=== PATIENT | female | born 1975 | race Caucasian/White ===

== ENCOUNTER 2018-04-28 10:19 | Emergency (ER) | payer MEDICAID, SELFPAY ==
[2018-04-28 10:20] VITALS: BP 152/80; PULSE 84; RESP 18; TEMP 36.6; O2SAT 98; BMI 31.4
--- NOTE | 2018-04-28 12:34 | RAD_ITS ---
STUDY: X-RAY CHEST REASON FOR EXAM: Female, 42 years old. Cough. Bright red blood in the sputum. TECHNIQUE: PA and lateral views of the chest. COMPARISON: None. FINDINGS: The lungs are clear and expanded. Scattered calcified granulomas. There is no demonstrated pleural abnormality. Normal size heart. Normal mediastinum and nilesh. Normal visualized pulmonary arteries. Normal visualized aortic arch and descending thoracic aorta. There are mild degenerative changes of the visualized thoracic spine. Normal visualized ribs, clavicles, and shoulders. There is no demonstrated abnormality of the visualized soft tissue structures of the upper abdomen. RAD/Chest PA and Lateral IMPRESSION: No acute abnormality is seen. Electronically Signed: Clement Patton MD at 13:17 EST , Service support ,
[2018-04-28 13:08] VITALS: RESP 18
--- NOTE | 2018-04-28 13:36 | ED.DCSUM_ITS ---
- ER Visit Summary Date of Service: 04/28/18 Chief Complaint: Left ear pain and cough History of Present Illness: The patient is a 42 F with congestion and left ear pain for the last week and a half. She was seen in urgent care. She was given Flonase, prednisone, Tessalon Perles, and an inhaler. Patient states she does not feel improved with this and now has right sided chest pain when she coughs. She has yellow sputum with her cough and occasional blood streaks. She has had chills but no fever. Physical Examination: Vital signs significant only for blood pressure 152/80, otherwise unremarkable. Patient sitting upright in bed no acute distress. She is nontoxic appearing. Head and neck examination was TMs to be clear bilaterally. She has mild posterior pharyngeal drainage. Heart is regular rate and rhythm. Lungs sounds are clear. Abdomen is soft nontender. Test Results: Chest x-ray shows no acute abnormality. Emergency Department Course and Treatment: Patient be treated with a course of Augmentin to cover for URI symptoms along with her bronchitis. She is also written for Mucinex at home. Treatment Plan: [] Disposition: Discharge Impression: Bronchitis This note was generated with [employer] dictation software. It may contain incorrect words, spelling, and punctuation that were not noted in review of the chart prior to signing ED Disposition - Plan for ED Patient: Disposition: Home or Assisted Living Instructions: ED Upper Resp Infec Abx Tx Prescriptions: Amox/Clavulanate Tablet [Augmentin Tablet] 875 mg PO Q12H #20 tablet Guaifenesin [Mucinex] 1,200 mg PO BID PRN #14 tbmp.12hr PRN Reason: Congestion Referrals: Javier Curtis MD [Primary Care Provider] - 1-2 Weeks
--- NOTE | 2018-04-28 13:39 | DCINST.ED_ITS ---
ED Disposition - Plan for ED Patient: Disposition: Home or Assisted Living Instructions: ED Upper Resp Infec Abx Tx Prescriptions: Amox/Clavulanate Tablet [Augmentin Tablet] 875 mg PO Q12H #20 tablet Guaifenesin [Mucinex] 1,200 mg PO BID PRN #14 tbmp.12hr PRN Reason: Congestion Referrals: Javier Curtis MD [Primary Care Provider] - 1-2 Weeks
[2018-04-28] MEDS: Amox/Clavulanate 875 MG Tablet PO (13:45)
[2018-04-28 13:46] VITALS: PULSE 93; RESP 22; O2SAT 98
--- NOTE | 2018-04-28 13:46 | ED.RN ---
THIS NURSE REVIEWED D/C INSTRUCTIONS WITH PT. PT VERBALIZED UNDERSTANDING OF INSTRUCTIONS. PT DENIES FURTHER NEEDS OR QUESTIONS AT THIS TIME.
== END 2018-04-28 13:46 | disposition home or self-care (01) ==
PROVIDERS: Emergency Provider Emergency Medicine; Family Provider Family Medicine; PCP Family Medicine
DX: J40 Bronchitis, not specified as acute or chronic (principal); K21.9 Gastro-esophageal reflux disease without esophagitis; E11.9 Type 2 diabetes mellitus without complications; Z79.84 Long term (current) use of oral hypoglycemic drugs; Z79.899 Other long term (current) drug therapy; Z72.0 Tobacco use
CPT/HCPCS: 71046; 99283

== ENCOUNTER 2019-06-28 16:51 | Emergency (ER) | payer SELFPAY ==
[2019-06-28 16:52] VITALS: BP 136/76; PULSE 75; RESP 15; TEMP 36.8; O2SAT 98; BMI 30.8
--- NOTE | 2019-06-28 17:17 | ED.DCSUM_ITS ---
- ER Visit Summary Date of Service: 06/28/19 Chief Complaint: Dental pain History of Present Illness: The patient is a 43 F who presents with dental pain and facial swelling that has been getting worse over the past 4 days. Patient describes the pain as throbbing and aching. Patient states the pain is over the left lower molars. Patient states her pain is worse when she opens her jaw. Patient also admits to hot and cold sensitivity. Patient denies any fevers or chills. Patient does admit to a sore throat. Patient denies any cough. Physical Examination: Vital signs are stable. Patient is afebrile. Patient is in no acute distress. Oral mucosa is pink and moist. Oropharynx is clear. Airway is patent. There is a large dental carry noted over the left lower second molar. There is some gingival edema. There is no fluctuance discharge or drainage. There is tenderness to percussion over this tooth. Neck is supple. Trachea is midline. There is no lymphadenopathy. There is no sublingual edema or evidence of Lazaro angina. Cranial nerves II through XII are intact. There are no focal motor or sensory deficits. Emergency Department Course and Treatment: Patient was given her first dose of amoxicillin here. Patient was given a prescription for amoxicillin. Patient was instructed to follow-up with a dentist in 5 to 7 days. Patient was instructed to continue Tylenol and ibuprofen as needed for pain. Patient un derstood and was agreeable with the plan. All questions were answered. Disposition: Discharge home Impression: Infected dental caries This note was generated with [employer] dictation software. It may contain incorrect words, spelling, and punctuation that were not noted in review of the chart prior to signing ED Disposition - Plan for ED Patient: Disposition: Home or Assisted Living Diagnosis: Infected dental caries Instructions: ED Abscess Tooth Prescriptions: Amoxicillin 500 mg PO TID #30 tab Prescription Printed Referrals: Javier Curtis MD [Primary Care Provider] -
[2019-06-28] MEDS: AMOXICILLIN 500 MG CAPSULE PO (17:37)
[2019-06-28 17:38] VITALS: RESP 16
== END 2019-06-28 17:38 | disposition home or self-care (01) ==
LOC: ED 17:22
PROVIDERS: Emergency Provider Emergency Medicine; PCP Family Medicine
DX: K02.9 Dental caries, unspecified (principal); F17.200 Nicotine dependence, unspecified, uncomplicated; E11.9 Type 2 diabetes mellitus without complications
CPT/HCPCS: 99283

== ENCOUNTER 2019-09-28 12:20 | Emergency (ER) | payer SELFPAY ==
[2019-09-28 12:22] VITALS: BP 159/87; PULSE 87; RESP 16; TEMP 36.6; O2SAT 98; BMI 25.0
--- NOTE | 2019-09-28 12:57 | RAD_ITS ---
STUDY: X-RAY - RIGHT HAND REASON FOR EXAM: Female, 43 years old. Pt. injured 2nd and 4th fingers, got them would up in the dog leash and then the dog pulled the leash tight TECHNIQUE: 3 view(s) of the hand. COMPARISON: None. FINDINGS: Normal radiocarpal articulation. Normal distal radioulnar joint. Normal visualized carpal bones. Normal carpal articulations Normal carpometacarpal articulation of the thumb. Normal second through fifth carpometacarpal joints. Normal metacarpi. Normal metacarpophalangeal joint of the thumb. Normal interphalangeal joint of the thumb. Normal proximal and distal phalanges of the thumb. Normal metacarpophalangeal joints of the second through fifth fingers. Normal proximal and distal interphalangeal joints of the second through fifth fingers. Nondisplaced oblique fracture through the midportion of the middle phalanx of the fourth digit. Soft tissue swelling. RAD/Hand Min 3 Views IMPRESSION: Nondisplaced oblique fracture through the midportion of the middle phalanx of fourth digit. Soft tissue swelling Electronically Signed: Clement Patton, at 13:16 EDT , Service support ,
--- NOTE | 2019-09-28 13:16 | ED.VISSUMM ---
- ER Visit Summary Date of Service: 09/28/19 Chief Complaint: Right fourth finger pain. History of Present Illness: The patient is a [address] nicole. She is right-hand dominant. She reports that yesterday her dog went to run away and she grabbed his leash and twisted her right fourth finger. She reports that she has a throbbing pain is 10 of 10 with movement 6 out of 10 at rest and after ibuprofen. Denies any paresthesias distally. She denies any other injuries. Physical Examination: Vitals: Stable. Afebrile. General: Well-nourished and well-developed. Head: Normocephalic atraumatic. Neck: Supple, no lymphadenopathy. No JVD. Nontender. Cardiovascular: Regular rate and rhythm. No murmurs. Respiratory: No respiratory distress. Clear to auscultation bilaterally. Abdominal: Soft, nontender, nondistended, normal bowel sounds. No guarding, rebound, or peritoneal signs. Back: Nontender. Extremities: Moderate soft tissue swelling and contusion over her right fourth finger. This is worse over the middle phalanx. She is neuro vas intact distal to this. Skin: Normal color, no rash. Neurologic: Alert and oriented ?3. Cranial nerves II through XII are intact. Normal strength and sensation. Psych: Normal affect. Test Results: Clinical Impression(s) from Imaging Studies Hand X-Ray 09/28/19 12:57 IMPRESSION: Nondisplaced oblique fracture through the midportion of the middle phalanx of fourth digit. Soft tissue swelling Electronically Signed: Clement Patton, at 13:16 EDT , Service support , Emergency Department Course and Treatment: Patient refused pain medications. She was placed in aluminum foam splint. Treatment Plan: Patient will be discharged instructions follow-up Dr. Steele in 1 week for another exam. Return to the emergency department for any worsening symptoms. Disposition: To home in improved and stable condition. Impression: 1. Right fourth finger middle phalanx fracture. This note was generated with [employer] software. It may contain incorrect words, spelling, and punctuation that were not noted in review of the chart prior to signing ED Disposition - Plan for ED Patient: Disposition: Home or Assisted Living Instructions: ED FINGER FRACTURE Closed Referrals: Radha Steele DO [STAFF PHYSICIAN] - 1 Week
[2019-09-28 13:47] VITALS: BP 142/74; PULSE 60; RESP 18; O2SAT 98
== END 2019-09-28 13:53 | disposition home or self-care (01) ==
LOC: ED 13:34
PROVIDERS: Emergency Provider Emergency Medicine; PCP Family Medicine
DX: S62.624A Displaced fracture of middle phalanx of right ring finger, initial encounter for closed fracture (principal); F17.200 Nicotine dependence, unspecified, uncomplicated; X58.XXXA Exposure to other specified factors, initial encounter
CPT/HCPCS: 73130; 99283

== ENCOUNTER 2020-08-06 17:45 | Emergency (ER) | payer MEDICAID, SELFPAY ==
[2020-08-06 17:46] VITALS: BP 142/72; PULSE 85; RESP 17; TEMP 36.1; O2SAT 97; BMI 31.4
[2020-08-06 19:14] VITALS: RESP 16
--- NOTE | 2020-08-06 19:42 | ED.VIS.BACK ---
HPI History of Present Illness Chief Complaint: Back Informant: patient Onset/Context/Timing Onset: Weeks (2 weeks) Context: Gradual Onset Timing: Continuous Quality: Sharp and Burning Location: Buttock and Right Leg Current Severity: Moderate Maximum Severity: Moderate Worsened by: improves with Movement Associated Symptoms Associated Symptoms: Radiation to Right Leg Narrative Narrative: Patient presents with low back pain. She reports pain to the right low back extending down her leg. She describes a burning sensation. She states her calf feels tight as if she has a charley horse. Symptoms been ongoing for the past 2 weeks. There is no fall or injury at the onset of symptoms. She has had sciatica as well as sacroiliitis. Patient reports that she is a diabetic but does not check her blood sugars as she lost her insurance. [facility] Medical History Diabetes GERD (gastroesophageal reflux disease) Hammer toes, bilateral Sciatic nerve pain Home Medications lisinopril 5 mg PO DAILY 07/25/13 [History Last Taken Unknown] Cetirizine Hcl [Zyrtec] 10 mg PO DAILY 02/03/16 [History Last Taken Unknown] atorvastatin 40 mg PO QHS 02/03/16 [History Last Taken Unknown] esomeprazole magnesium [Nexium] 20 mg PO DAILY 02/03/16 [History Last Taken Unknown] metformin 500 mg PO BID 02/03/16 [History Last Taken Unknown] amoxicillin 500 mg PO TID #30 tab 06/28/19 [Rx Last Taken Unknown] cyclobenzaprine 10 mg PO BID PRN #10 tab 08/06/20 [Rx Last Taken Unknown] hydrocodone-acetaminophen 1 tab PO Q6H PRN 3 Days #10 tab 08/06/20 [Rx Last Taken Unknown] naproxen [Naprosyn] 500 mg PO BID PRN #20 tab 08/06/20 [Rx Last Taken Unknown] prednisone 40 mg PO DAILY #8 tab 08/06/20 [Rx Last Taken Unknown] Allergy/AdvReac Type Severity Reaction Status Date / Time No Known Allergies Allergy Verified 08/06/20 17:47 Surgical History History of tonsillectomy History of tubal ligation History of tympanostomy tube placement Social History Smoking Status: Current every day smoker ROS ROS ED Constitutional Constitutional ED: Denies chills or fever(s) Eyes Eyes: Denies change in vision ENT ENT ED: Denies sore throat Cardiovascular Cardiovascular: Denies chest pain Respiratory/Chest Respiratory/Chest: Denies cough or dyspnea Gastrointestinal Gastrointestinal: Denies abdominal pain, diarrhea, nausea or vomiting Genitourinary Genitourinary ED: Denies dysuria Musculoskeletal Musculoskeletal: Reports back pain Integumentary Denies rash Neurologic Neurologic: Denies headache(s) or weakness Psychiatric Psychiatric: Denies anxiety or depression Endocrine Endocrinology: Denies polydipsia or polyuria Allergic/Immunologic Allergic/Immunologic ED: Denies urticaria EXAM Physical Exam Const Vital Signs: 08/06/20 17:46 08/06/20 19:14 Temperature 96.9 F L Temperature Source Temporal Pulse Rate 85 Respiratory Rate 17 16 Blood Pressure 142/72 H Blood Pressure Mean 95 Pulse Ox 97 Oxygen Delivery Method Room Air Positive well nourished and well developed General Appearance ED: well developed HEENT Reports normocephalic and head/scalp atraumatic Eyes PERRL and EOMs intact bilaterally Neck supple Chest Wall inspection of chest normal and palpation of chest normal Resp normal respiratory effort and clear to auscultation bilaterally Cardio regular rate and regular rhythm GI normal to inspection, nondistended, normoactive bowel sounds Palpation: soft Back/Spine no CVA tenderness and normal to inspection Back/Spine Narrative: Patient with tenderness over the right SI joint and over the sciatic notch. No midline thoracic or lumbar tenderness. Extremity normal to inspection Neuro oriented x3 and no sensory deficits noted Sensorium / Orientation: alert Motor Exam: strength 5/5 throughout Psych mental status grossly normal Skin no rashes or lesions noted MDM MDM Lab Data Labs: Laboratory Results - last 24 hr 08/06/20 19:52 POC Glucose 114 H Treatment and Re-Evaluation Comments:: Patient's exam is consistent with sciatica. Patient given prescriptions for prednisone burst, Naprosyn, Flexeril, [place]. Discharge Plan Triage Chief Complaint: Back ED Provider: Zakia Parham Dx/Rx/DC Orders Clinical Impression: Sciatica Instructions: ED Sciatica Prescriptions: New naproxen [Naprosyn] 500 mg tablet 500 mg PO BID PRN (Reason: pain) Qty: 20 RF: 0 hydrocodone-acetaminophen 5-325 mg tablet 1 tab PO Q6H PRN (Reason: pain) 3 Days Qty: 10 RF: 0 cyclobenzaprine 10 mg tablet 10 mg PO BID PRN (Reason: muscle spasm) Qty: 10 RF: 0 prednisone 20 mg tablet 40 mg PO DAILY Qty: 8 RF: 0 No Action lisinopril 5 MG tablet 5 mg PO DAILY RF: 0 metformin 500 MG tablet 500 mg PO BID RF: 0 atorvastatin 20 MG tablet 40 mg PO QHS RF: 0 esomeprazole magnesium [Nexium] 20 MG capsule 20 mg PO DAILY RF: 0 Cetirizine Hcl [Zyrtec] 10 MG tablet 10 mg PO DAILY RF: 0 amoxicillin 500 MG tablet 500 mg PO TID Qty: 30 RF: 0 Primary Care Provider: Javier Curtis Referrals: Javier Curtis MD [Primary Care Provider] - 1 Week if not improving Disposition Disposition: Home, self care Discharge Date/Time: 08/06/20 20:44
[2020-08-06] MEDS: Naproxen 500 MG Tablet PO (19:53)
[2020-08-06] MEDS: predniSONE 20 MG Tablet 40 MG PO (19:53)
[2020-08-06 20:00] LABS: Bedside Glucose 114 mg/dL (70-110)
== END 2020-08-06 20:44 | disposition home or self-care (01) ==
PROVIDERS: Emergency Provider Emergency Medicine; PCP Family Medicine
DX: M54.41 Lumbago with sciatica, right side (principal); E11.9 Type 2 diabetes mellitus without complications; K21.9 Gastro-esophageal reflux disease without esophagitis; Z79.84 Long term (current) use of oral hypoglycemic drugs; F17.200 Nicotine dependence, unspecified, uncomplicated
CPT/HCPCS: 82962; 99283

== ENCOUNTER 2021-04-05 14:15 | Outpatient (CLI) | payer MEDICAID, SELFPAY | END 2021-04-05 23:59 | disposition short-term general hospital (02) | LOC: LABSPEC 14:16 | PROVIDERS: PCP Family Medicine; Referring Provider Physician Assistant; Visit Provider Physician Assistant | DX: U07.1 COVID-19 (principal) | CPT/HCPCS: 87635; U0003; U0005 ==

== ENCOUNTER 2021-11-25 17:57 | Emergency (ER) | payer MEDICAID, SELFPAY ==
[2021-11-25 17:58] VITALS: BP 158/71; PULSE 84; RESP 16; TEMP 36.2; O2SAT 98; BMI 33.0
--- NOTE | 2021-11-25 18:16 | EDS_ITS ---
HPI History of Present Illness Chief Complaint: Upper Extremity Injury Informant: patient Onset/Context/Timing Onset: Weeks Context: Gradual Onset Current Severity: Moderate Maximum Severity: Moderate Narrative Narrative: Patient presents with 1 week history of right thumb pain. She points along the extensor tendon as well as over the thenar eminence. No known injury. 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 She is right-hand dominant. [facility] Medical History Diabetes GERD (gastroesophageal reflux disease) Hammer toes, bilateral Sciatic nerve pain Home Medications lisinopril 5 mg tablet 5 mg PO DAILY 07/25/13 [History Last Taken Unknown] Cetirizine Hcl [Zyrtec] 10 mg PO DAILY 02/03/16 [History Last Taken Unknown] atorvastatin 20 mg tablet 40 mg PO QHS 02/03/16 [History Last Taken Unknown] esomeprazole magnesium 20 mg capsule,delayed release (Nexium) 20 mg PO DAILY 02/03/16 [History Last Taken Unknown] metformin 500 mg tablet 500 mg PO BID 02/03/16 [History Last Taken Unknown] amoxicillin 500 mg tablet 500 mg PO TID #30 tabs 06/28/19 [Rx Last Taken Unknown] cyclobenzaprine 10 mg tablet 10 mg PO BID PRN muscle spasm #10 tabs 08/06/20 [Rx Last Taken Unknown] hydrocodone-acetaminophen 5-325mg 5mg-325mg 1 tab PO Q6H PRN pain 3 days #10 tabs 08/06/20 [Rx Last Taken Unknown] naproxen 500 mg tablet (Naprosyn) 500 mg PO BID PRN pain #20 tabs 08/06/20 [Rx Last Taken Unknown] prednisone 20 mg tablet 40 mg PO DAILY #8 tabs 08/06/20 [Rx Last Taken Unknown] prednisone 20 mg tablet 40 mg PO DAILY #8 tabs 11/25/21 [Rx Last Taken Unknown] Allergy/AdvReac Type Severity Reaction Status Date / Time No Known Allergies Allergy Verified 08/06/20 17:47 Surgical History History of tonsillectomy History of tubal ligation History of tympanostomy tube placement Social History Smoking Status: Current every day smoker tobacco type: cigarettes ROS ROS ED Constitutional Constitutional ED: Denies chills or fever(s) Eyes Eyes: Denies change in vision or discharge from eye(s) ENT ENT ED: Denies discharge from eye(s), rhinorrhea or sore throat Cardiovascular Cardiovascular: Denies chest pain or palpitations Respiratory/Chest Respiratory/Chest: Denies cough or dyspnea Gastrointestinal Gastrointestinal: Denies abdominal pain, diarrhea, nausea or vomiting Musculoskeletal Musculoskeletal: Reports extremity pain; Denies back pain Integumentary Denies Abrasions or rash Neurologic Neurologic: Denies headache(s) or weakness Allergic/Immunologic Allergic/Immunologic ED: Denies lip swelling or urticaria EXAM Physical Exam Const Vital Signs: 11/25/21 17:58 Temperature 97.2 F L Temperature Source Temporal Pulse Rate 84 Respiratory Rate 16 Blood Pressure 158/71 H Blood Pressure Mean 100 Pulse Ox 98 Oxygen Delivery Method Room Air Positive well nourished and well developed General Appearance ED: well developed HEENT Reports normocephalic and head/scalp atraumatic Eyes PERRL and EOMs intact bilaterally Neck supple Chest Wall inspection of chest normal and palpation of chest normal Resp normal respiratory effort and clear to auscultation bilaterally Cardio regular rate and regular rhythm GI normal to inspection, nondistended, normoactive bowel sounds Palpation: soft Extremity Extremity Narrative: Tenderness to palpation along the extensor tendon of the right thumb as well as over the thenar eminence. No significant edema. No focal joint tenderness. No erythema or edema. Good cap refill and sensation. Neuro oriented x3 and no sensory deficits noted Sensorium / Orientation: alert Psych mental status grossly normal Skin no rashes or lesions noted MDM MDM MDM Narrative Medical decision making narrative: Right hand x-ray obtained. Treatment and Re-Evaluation Narrative: Right hand x-ray per my interpretation shows no acute findings. Radiology interpretation is reviewed. Patient was placed in a thumb spica splint and started on prednisone. I believe she has tendinitis. Patient is diabetic but was recently taken off of her medication because her blood sugars have been doing well. She was advised that her blood sugars would increase while on steroids but would come back down once this medication is finished. She voices understanding and agreement. Discharge Plan Triage Chief Complaint: Upper Extremity Injury ED Provider: Zakia Parham Dx/Rx/DC Orders Clinical Impression: Tendinitis Instructions: ED Tendonitis Prescriptions: New prednisone 20 mg tablet 40 mg PO DAILY Qty: 8 0RF No Action lisinopril 5 MG tablet 5 mg PO DAILY metformin 500 MG tablet 500 mg PO BID atorvastatin 20 MG tablet 40 mg PO QHS esomeprazole magnesium [Nexium] 20 MG capsule 20 mg PO DAILY Cetirizine Hcl [Zyrtec] 10 MG tablet 10 mg PO DAILY amoxicillin 500 MG tablet 500 mg PO TID Qty: 30 0RF naproxen [Naprosyn] 500 mg tablet 500 mg PO BID PRN (Reason: pain) Qty: 20 0RF hydrocodone-acetaminophen 5-325 mg tablet 1 tab PO Q6H PRN (Reason: pain) 3 Days Qty: 10 0RF cyclobenzaprine 10 mg tablet 10 mg PO BID PRN (Reason: muscle spasm) Qty: 10 0RF prednisone 20 mg tablet 40 mg PO DAILY Qty: 8 0RF Primary Care Provider: Javier Curtis Referrals: Javier Curtis MD [Primary Care Provider] - 10-14 Days if not better Disposition Disposition: Home, Self Care
--- NOTE | 2021-11-25 18:20 | RAD_ITS ---
STUDY: XR Hand Min 3 Views REASON FOR EXAM: Female, 46 years old. pain TECHNIQUE: XR Hand Min 3 Views RIGHT COMPARISON: 7.6.20. FINDINGS: Normal radiocarpal articulation. Normal distal radioulnar joint. Normal visualized carpal bones. Normal carpal articulations Normal carpometacarpal articulation of the thumb. Normal second through fifth carpometacarpal joints. Normal metacarpi. Normal metacarpophalangeal joint of the thumb. Normal interphalangeal joint of the thumb. Normal proximal and distal phalanges of the thumb. Normal metacarpophalangeal joints of the second through fifth fingers. Normal proximal and distal interphalangeal joints of the second through fifth fingers. Normal phalanges of the second through fifth fingers. The soft tissue structures are unremarkable. RAD/Hand Min 3 Views IMPRESSION: There are no acute findings. Electronically Signed: Adolfo Deras MD at 19:00 EDT ,
[2021-11-25] MEDS: predniSONE 20 MG Tablet 40 MG PO (19:13)
== END 2021-11-25 19:15 | disposition home or self-care (01) ==
PROVIDERS: Emergency Provider Emergency Medicine; PCP Family Medicine; Visit Provider Emergency Medicine
DX: M77.9 Enthesopathy, unspecified (principal); F17.210 Nicotine dependence, cigarettes, uncomplicated; M79.644 Pain in right finger(s)
CPT/HCPCS: 73130; 99283

== ENCOUNTER 2022-03-09 13:53 | Emergency (ER) | payer MEDICAID, SELFPAY ==
[2022-03-09 13:54] VITALS: BP 151/80; PULSE 100; RESP 18; TEMP 36; O2SAT 98; BMI 28.2
--- NOTE | 2022-03-09 15:14 | EKG12_ITS ---
Test Reason : CP Blood Pressure : / mmHG Vent. Rate : 083 BPM Atrial Rate : 083 BPM P-R Int : 152 ms QRS Dur : 074 ms QT Int : 346 ms P-R-T Axes : 038 006 050 degrees QTc Int : 406 ms Normal sinus rhythm Normal ECG Confirmed by CELESTINA KRISHNAN, ZEFERINO ([id number]), continuity editor PAXTON MILLER ([id number]) on 03/12/2022 12:58:07 PM Referred By: MADDIE Confirmed By:ZEFERINO OSCAR MD
--- NOTE | 2022-03-09 15:40 | RAD_ITS ---
STUDY: X-RAY CHEST REASON FOR EXAM: Female, 46 years old. Chest pain TECHNIQUE: Single AP portable view of the chest. COMPARISON: April 28, 2018 chest x-ray FINDINGS: There is a 4 mm stable calcified granuloma in the right apex. The lungs are clear and expanded. There is no demonstrated pleural abnormality. Normal size heart. Normal mediastinum and nilesh. Normal visualized pulmonary arteries. Normal visualized aortic arch and descending thoracic aorta. There are diffuse degenerative changes of the visualized thoracic spine. There is visualized calcification adjacent to the left humeral head suggesting calcific tendinosis. There is no demonstrated abnormality of the visualized soft tissue structures of the upper abdomen. RAD/Chest 1 View (Portable) IMPRESSION: Stable chest. No visualized acute focal infiltrate. Electronically Signed: Brooke Gustafson MD at 16:17 [facility] ,
[2022-03-09 16:01] LABS: Absolute Neutrophil Count 3.4 X10^3/uL (2.0-7.7); Basophil# 0.04 X10^3/uL; Basophil% 0.6 % (0-1); Eosinophil# 0.16 X10^3/uL; Eosinophils% 2.4 % (0-5); Hematocrit 44.7 % (37-47); Hemoglobin 14.6 g/dL (12.0-15.0); Lymphocyte % 37.4 % (19-41); Mean Corp Hgb Conc 32.7 g/dL (32-36); Mean Corpuscular Hgb 29.9 pg (27.0-32.0); Mean Corpuscular Volume 91.4 fL (81-99); Mean Platelet Vol. 10.4 fl (6.2-12.0); Monocyte# 0.54 X10^3/uL; Monocyte% 8.1 % (0-10); NRBC Flagged by Analyzer 0 % (0-5); Neutrophil # 3.42 X10^3/uL (2.7-7.7); Neutrophil % 51.2 % (47-70); Platelet Count 336 K/mm3 (150-450); RBC Distribution Width CV 13.9 % (11.6-14.6); RBC Distribution Width SD 47.1 fl (35.1-43.9); Red Blood Count 4.89 M/mm3 (4.2-5.4); White Blood Count 6.7 K/mm3 (4.4-11.0)
[2022-03-09 16:16] VITALS: BP 123/77; PULSE 62; RESP 16; O2SAT 97
[2022-03-09 16:17] LABS: Anion Gap 4 (5-15); BUN 8 mg/dL (7-18); BUN/Creat Ratio 11.4 RATIO (10-20); Calcium,Total 9.4 mg/dL (8.5-10.1); Chloride 106 mmol/L (98-107); EST Glomerular Filtration Rate 96 mL/min (>60); Est Glom Filt Rate - Afr Amer 116 mL/min (>60); Estimated Creatinine Clearance 94.01 ml/min; Glucose 126 mg/dL (74-106); Sodium Level 137 mmol/L (136-145); Troponin-I HS 6 pg/mL (3.0-54.0)
--- NOTE | 2022-03-09 16:25 | ED.VIS.CHEST ---
HPI History of Present Illness Chief Complaint: Chest Pain Informant: patient Narrative Narrative: Patient presents sudden sharp chest pain substernal at noon while doing dishes. No trauma. Reports feeling her symptoms when she had pneumonia however denies any cough. Pain worse with deep breaths. No fevers. No recent illness. History of diabetes and hyperlipidemia. Denies tobacco history. Denies family history of MIs at a young age. No recent travel, surgery, or immobilizations. No history of PE or DVT. Denies any allergies. Denies history gastric ulcers or kidney injury. Prior Similar Symptoms: Yes PFSH [facility] Medical History Diabetes GERD (gastroesophageal reflux disease) Hammer toes, bilateral Sciatic nerve pain Home Medications lisinopril 5 mg tablet 5 mg PO DAILY 07/25/13 [History Last Taken Unknown] Cetirizine Hcl [Zyrtec] 10 mg PO DAILY 02/03/16 [History Last Taken Unknown] atorvastatin 20 mg tablet 40 mg PO QHS 02/03/16 [History Last Taken Unknown] esomeprazole magnesium 20 mg capsule,delayed release (Nexium) 20 mg PO DAILY 02/03/16 [History Last Taken Unknown] metformin 500 mg tablet 500 mg PO BID 02/03/16 [History Last Taken Unknown] amoxicillin 500 mg tablet 500 mg PO TID #30 tabs 06/28/19 [Rx Last Taken Unknown] cyclobenzaprine 10 mg tablet 10 mg PO BID PRN muscle spasm #10 tabs 08/06/20 [Rx Last Taken Unknown] hydrocodone-acetaminophen 5-325mg 5mg-325mg 1 tab PO Q6H PRN pain 3 days #10 tabs 08/06/20 [Rx Last Taken Unknown] naproxen 500 mg tablet (Naprosyn) 500 mg PO BID PRN pain #20 tabs 08/06/20 [Rx Last Taken Unknown] prednisone 20 mg tablet 40 mg PO DAILY #8 tabs 08/06/20 [Rx Last Taken Unknown] prednisone 20 mg tablet 40 mg PO DAILY #8 tabs 11/25/21 [Rx Last Taken Unknown] Allergy/AdvReac Type Severity Reaction Status Date / Time No Known Allergies Allergy Verified 03/09/22 13:54 Surgical History History of tonsillectomy History of tubal ligation History of tympanostomy tube placement Social History Smoking Status: Current every day smoker tobacco type: cigarettes ROS ROS ED Constitutional Constitutional ED: Denies chills, fever(s) or sweats Eyes Eyes: Denies change in vision ENT ENT ED: Denies dysphagia or sore throat Cardiovascular Cardiovascular: Reports chest pain; Denies leg edema, palpitations or racing heartbeat Respiratory/Chest Respiratory/Chest: Denies cough, dyspnea or dyspnea on exertion Gastrointestinal Gastrointestinal: Denies abdominal pain, diarrhea, nausea or vomiting Genitourinary Genitourinary ED: Denies dysuria, hematuria or urinary frequency Musculoskeletal Musculoskeletal: Denies back pain, extremity pain or neck pain Integumentary Denies rash or wounds Neurologic Neurologic: Denies headache(s), paresthesias or weakness EXAM Physical Exam Const Vital Signs: 03/09/22 13:54 03/09/22 16:16 03/09/22 16:20 Temperature 96.8 F L Temperature Source Temporal Temporal Pulse Rate 100 62 Respiratory Rate 18 16 Blood Pressure 151/80 H 123/77 H Blood Pressure Mean 103 92 Pulse Ox 98 97 Oxygen Delivery Method Room Air Room Air Room Air 03/09/22 17:27 03/09/22 18:34 03/09/22 18:35 Temperature Temperature Source Pulse Rate 61 55 L Respiratory Rate 16 15 Blood Pressure 117/77 131/86 H Blood Pressure Mean 90 Pulse Ox 99 99 99 Oxygen Delivery Method Room Air Room Air Positive well nourished and well developed General Appearance ED: well developed and NAD HEENT Reports moist mucous membranes normocephalic and atraumatic Eyes PERRL, EOMs intact bilaterally and conjunctivae normal General Eye ED: Yes normal appearance of both eyes Neck no lymphadenopathy and supple General: Negative for tenderness Chest Wall inspection of chest normal and palpation of chest normal Chest Narrative: No pain with chest wall palpation. Chest: Negative for tenderness Resp normal respiratory effort and normal air movement Effort and Inspection: symmetric chest movement; Negative for respiratory distress Cardio regular rate, regular rhythm and no murmurs Peripheral Pulses: pulses 2+ throughout GI normal to inspection, nondistended, normoactive bowel sounds and non-tender Palpation: Negative for guarding or rebound tenderness present Back/Spine no CVA tenderness and no thoracic nor lumbar tenderness Extremity normal to inspection General Extremety ED: Negative for edema or tenderness General Extremity: Negative for edema Neuro oriented x3 and no sensory deficits noted Sensorium / Orientation: awake and alert Skin no rashes or lesions noted and no wounds Heart Score History: Slightly/Non-Suspicious ECG: Normal Age: >45 - <65 years Risk Factors: 1 or 2 Risk Factors Troponin: </= Normal Limit Score: 2 MDM MDM MDM Narrative Medical decision making narrative: Initial labPatient work-up started from triage EKG normal normal initial troponin at 6. We will perform a 2-hour troponin. We will treat with Toradol. 1 view chest x-ray reviewed by myself and read by radiology shows no acute process. Delta troponin negative. Symptom-free on reevaluation. Patient follow-up with PCP for further testing with risk factors. Return precautions. All questions were answered. Lab Data Attestation: I reviewed the patient's lab results. Labs: Laboratory Results - last 24 hr 03/09/22 03/09/22 03/09/22 15:40 15:40 17:21 WBC 6.7 RBC 4.89 Hgb 14.6 Hct 44.7 MCV 91.4 MCH 29.9 MCHC 32.7 RDW Std Deviation 47.1 H RDW Coeff of Mitchel 13.9 Plt Count 336 MPV 10.4 Immature Gran % (Auto) 0.300 Neut % (Auto) 51.2 Lymph % (Auto) 37.4 [place] % (Auto) 8.1 Eos % (Auto) 2.4 Baso % (Auto) 0.6 Absolute Neuts (auto) 3.4 Absolute Lymphs (auto) 2.50 Nucleated RBC % 0 Sodium 137 Potassium 4.0 Chloride 106 Carbon Dioxide 27.0 Anion Gap 4 L BUN 8 Creatinine 0.70 Estim Creat Clear Calc 94.01 Est GFR (MDRD) Af Amer 116 Est GFR (MDRD) Non-Af 96 BUN/Creatinine Ratio 11.4 Glucose 126 H Calcium 9.4 Troponin I High Sens 6 5 Radiography Diagnostic Testing: Clinical Impression(s) from Imaging Studies Chest X-Ray 03/09/22 15:40 IMPRESSION: Stable chest. No visualized acute focal infiltrate. Electronically Signed: Brooke Gustafson MD at 16:17 EST , EKG Initial EKG: Attestation: I personally reviewed and interpreted this EKG as follows: Comments: Sinus rate of 83, no ST or T wave changes. Discharge Plan Triage Chief Complaint: Chest Pain ED Provider: Connor Solano Dx/Rx/DC Orders Clinical Impression: Chest pain, History of diabetes mellitus, History of hyperlipidemia Prescriptions: No Action lisinopril 5 MG tablet 5 mg PO DAILY metformin 500 MG tablet 500 mg PO BID atorvastatin 20 MG tablet 40 mg PO QHS esomeprazole magnesium [Nexium] 20 MG capsule 20 mg PO DAILY Cetirizine Hcl [Zyrtec] 10 MG tablet 10 mg PO DAILY amoxicillin 500 MG tablet 500 mg PO TID Qty: 30 0RF naproxen [Naprosyn] 500 mg tablet 500 mg PO BID PRN (Reason: pain) Qty: 20 0RF hydrocodone-acetaminophen 5-325 mg tablet 1 tab PO Q6H PRN (Reason: pain) 3 Days Qty: 10 0RF cyclobenzaprine 10 mg tablet 10 mg PO BID PRN (Reason: muscle spasm) Qty: 10 0RF prednisone 20 mg tablet 40 mg PO DAILY Qty: 8 0RF prednisone 20 mg tablet 40 mg PO DAILY Qty: 8 0RF Primary Care Provider: Teofilo Ward Referrals: Javier Curtis MD [Non-Staff] - 3-5 Days Activity Restrictions/Additional Instructions: Cardiac work-up negative. Use Tylenol Motrin as needed. Follow-up with your doctor for further testing. Return if any worsening symptoms. Disposition Disposition: Home, Self Care Discharge Date/Time: 03/09/22 18:36
[2022-03-09] MEDS: Ketorolac 15 MG/ML Vial IV (17:25)
[2022-03-09 17:27] VITALS: BP 117/77; PULSE 61; RESP 16; O2SAT 99
[2022-03-09 18:08] LABS: Troponin-I HS 5 pg/mL (3.0-54.0)
[2022-03-09 18:34] VITALS: BP 131/86; PULSE 55; RESP 15; O2SAT 99
[2022-03-09 18:35] VITALS: O2SAT 99
== END 2022-03-09 18:36 | disposition home or self-care (01) ==
PROVIDERS: Emergency Provider Emergency Medicine; PCP Family Medicine; Visit Provider Emergency Medicine
DX: R07.9 Chest pain, unspecified (principal); E11.9 Type 2 diabetes mellitus without complications; E78.5 Hyperlipidemia, unspecified; K21.9 Gastro-esophageal reflux disease without esophagitis; F17.210 Nicotine dependence, cigarettes, uncomplicated; Z79.84 Long term (current) use of oral hypoglycemic drugs; Z79.899 Other long term (current) drug therapy
CPT/HCPCS: 71045; 80048; 84484; 85025; 93005; 96374; 99284; A4216

== ENCOUNTER 2024-03-12 23:35 | Emergency (ER) | payer MEDICAID, SELFPAY ==
[2024-03-12 23:38] VITALS: BP 135/66; PULSE 94; RESP 18; TEMP 36.4; O2SAT 100; BMI 28.0
--- NOTE | 2024-03-12 23:48 | EDS_ITS ---
HPI History of Present Illness Chief Complaint: Other, Pain/Inj PFSH PFSH Medical History Diabetes GERD (gastroesophageal reflux disease) Hammer toes, bilateral Sciatic nerve pain Home Medications ?Medication ?Instructions ?Recorded ?Last Taken ?Type lisinopril 5 mg tablet 5 mg PO DAILY 07/25/13 Unknown History Cetirizine Hcl [Zyrtec] 10 mg PO DAILY 02/03/16 Unknown History atorvastatin 20 mg tablet 40 mg PO QHS 02/03/16 Unknown History esomeprazole magnesium 20 mg 20 mg PO DAILY 02/03/16 Unknown History capsule,delayed release (Nexium) metformin 500 mg tablet 500 mg PO BID 02/03/16 Unknown History amoxicillin 500 mg tablet 500 mg PO TID #30 tabs 06/28/19 Unknown Rx cyclobenzaprine 10 mg tablet 10 mg PO BID PRN muscle spasm #10 08/06/20 Unknown Rx tabs hydrocodone-acetaminophen 5-325mg 1 tab PO Q6H PRN pain 3 days #10 08/06/20 Unknown Rx 5mg-325mg tabs naproxen 500 mg tablet (Naprosyn) 500 mg PO BID PRN pain #20 tabs 08/06/20 Unknown Rx prednisone 20 mg tablet 40 mg (2 x 20 mg) PO DAILY #8 tabs 08/06/20 Unknown Rx prednisone 20 mg tablet 40 mg (2 x 20 mg) PO DAILY #8 tabs 11/25/21 Unknown Rx oxycodone 5 mg tablet 5 mg PO Q6H PRN pain 3 days #12 03/12/24 Unknown Rx tabs Allergy/AdvReac Type Severity Reaction Status Date / Time No Known Allergies Allergy Verified 03/12/24 23:37 Surgical History History of tonsillectomy History of tubal ligation History of tympanostomy tube placement Social History Smoking Status: Current every day smoker tobacco type: cigarettes EXAM Physical Exam Const Vital Signs: 03/12/24 23:38 Temperature 97.5 F L Temperature Source Temporal Pulse Rate 94 Respiratory Rate 18 Blood Pressure 135/66 H Blood Pressure Mean 89 Pulse Ox 100 Oxygen Delivery Method Room Air MDM MDM MDM Narrative Medical decision making narrative: HISTORY OF PRESENT ILLNESS: 48-year-old female presents with left hip pain and right leg pain has been chronic for years. Denies any recent injury. No falls or other trauma. Notes [id number] pain medicines not helping. No leg swelling. Patient denies active cancer, being bedridden for greater than 3 days, denies unilateral leg swelling, denies any varicose veins, denies any calf tenderness, denies tenderness along deep venous system. Denies major surgery within 12 weeks, recent paralysis, previous DVT. No back pain. Patient denies any saddle anesthesia, urinary retention, bowel or bladder incontinence, lower extremity weakness, fever or IV drug use, no recent spinal manipulation or surgery, no recent urinary catheterization. REVIEW OF SYSTEMS: Pertinent positives: Left hip pain, right leg pain Pertinent negatives: Leg swelling, chest pain, shortness of breath, fever, rash PHYSICAL EXAM: Nursing triage notes reviewed, Vital signs reviewed Constitutional: please see mdm HENT: MMM Eyes: Pupils equal round and reactive to light, Extraocular muscles intact Neck: No stridor, no JVD, full neck ROM Lungs: Clear to auscultation, No wheezing or rales. No increased work of breathing, no conversational dyspnea, no accessory muscle use, no nasal flaring. No respiratory distress noted Heart: Regular rate and rhythm, No murmurs, No rubs and No gallops, 2+ distal pulses (radial, femoral, posterior tibial) in all extremities Abdomen: Soft, there is no tenderness, rigidity, rebound or guarding, no obvious peritoneal signs, no palpable pulsatile abdominal masses, no auscultated abdominal bruit : No CVAT Back: No midline step-offs deformities. Extremities: No edema, no TTP to left hip. Intact logroll. Intact left hip flexion extension internal/external rotation. Movements are slight limited by pain but overall has full range of motion. Neuro: Intact sensation L1-S1 dermatomal distributions. Intact 5/5 strength in hip flexion (T12-L3). Knee extension (L2-L4). Ankle dorsiflexion (L4-L5). Ankle plantar flexion (S1). Great toe extension (L5). 2+ patellar and Achilles DTRs. Skin: No rash or lesions noted MEDICAL DECISION MAKING: Chief Complaint: Left hip pain External records reviewed: Reviewed prior imaging studies, reviewed PDMP records: No recent narcotic prescriptions filled Factors affecting care: Type 2 diabetes, sciatica, hyperlipidemia, hypertension Social determinants of health: none History obtained from others: The patient's family member Consults: none [facility] Narrative: The patient was initially hemodynamically stable, afebrile and nontoxic- appearing. There is no report of trauma. There is no obvious deformities loss of movement, no neurovascular compromise of left lower extremity. I considered the following differential diagnosis: Fracture, dislocation, chronic pain, DVT, arterial occlusion The patient's history and physical exam was not consistent DVT, arterial occlusion, fracture dislocation. Advanced imaging studies including x-ray ultrasound not indicated at this time. I suspect the patient is suffering from acute on chronic pain. As such we will give additional pain control the form of n oxycodone. Will give pain management and PCP follow-up for further outpatient evaluation. The patient and/or family, caregivers express understanding. The patient and/or family, caregivers agrees with the plan. Shared decision making: I will have a discussion with the patient and or visitors regarding risk/benefits of further testing or admission. They will be made aware of of the risk/benefits inherent in this decision they will be given the opportunity to voice understanding. Total critical care time today provided was at least 0 [] minutes. This excludes separately billable procedures. Critical care time (if documented) is secondary to the patient having high probability of clinically significant/life threatening deterioration in the patient's condition which required my urgent intervention. Impression: 1. Acute on chronic left hip pain 2. History of diabetes Dispo: Discharge home This note was generated with [employer] dictation software. It may contain incorrect words, spelling, and punctuation that were not noted in review of the chart prior to signing. Discharge Plan Triage Chief Complaint: Other, Pain/Inj ED Provider: Aston Lucero Dx/Rx/DC Orders Clinical Impression: Chronic left hip pain Instructions: ANDREW WHITMORE Chronic Pain Prescriptions: New oxycodone 5 mg tablet 5 mg PO Q6H PRN (Reason: pain) 3 Days Qty: 12 0RF No Action lisinopril 5 MG tablet 5 mg PO DAILY metformin 500 MG tablet 500 mg PO BID atorvastatin 20 MG tablet 40 mg PO QHS esomeprazole magnesium [Nexium] 20 MG capsule 20 mg PO DAILY Cetirizine Hcl [Zyrtec] 10 MG tablet 10 mg PO DAILY amoxicillin 500 MG tablet 500 mg PO TID Qty: 30 0RF naproxen [Naprosyn] 500 mg tablet 500 mg PO BID PRN (Reason: pain) Qty: 20 0RF hydrocodone-acetaminophen 5-325 mg tablet 1 tab PO Q6H PRN (Reason: pain) 3 Days Qty: 10 0RF cyclobenzaprine 10 mg tablet 10 mg PO BID PRN (Reason: muscle spasm) Qty: 10 0RF prednisone 20 mg tablet 40 mg PO DAILY Qty: 8 0RF prednisone 20 mg tablet 40 mg PO DAILY Qty: 8 0RF Stand Alone Forms: ED Work / School Excuse Primary Care Provider: Care Physician,No Primary Referrals: Mary Cowart MD [Med Staff - Active Staff] - America Dubose DO [Med Staff - Active Staff] - Activity Restrictions/Additional Instructions: Thank you for trusting us with your care today! Your history and physical exam are consistent with acute on chronic pain. There is no specific lab test or imaging studies to assess this further. Please take Tylenol (2 pills, 650 mg), ibuprofen (2 pills, 400 mg) every 6 hours as needed for pain and fever control. Please take oxycodone as needed for breakthrough pain if the above regimen does not control your pain effectively. Please return to the emergency department if your symptoms change or worsen. Specifically develop discoloration of your left leg, swelling of your left leg, inability to move your left leg. Please follow with your pain management, primary care physician for further outpatient evaluation and management. Print Language: Mongolian Disposition Disposition: Home, Self Care
[2024-03-13] MEDS: Ibuprofen 200 MG Tablet 400 MG PO (00:13)
[2024-03-13] MEDS: oxyCODONE 5 MG Tablet PO (00:13)
[2024-03-13 00:15] VITALS: BP 134/71; PULSE 88; RESP 16; TEMP 36.7; O2SAT 97
== END 2024-03-13 00:16 | disposition home or self-care (01) ==
LOC: ED 23:59
PROVIDERS: Emergency Provider Emergency Medicine; Visit Provider Emergency Medicine
DX: M25.552 Pain in left hip (principal); E11.9 Type 2 diabetes mellitus without complications; G89.29 Other chronic pain; F17.210 Nicotine dependence, cigarettes, uncomplicated
CPT/HCPCS: 99283

== ENCOUNTER 2024-03-14 07:31 | Emergency (ER) | payer MEDICAID, SELFPAY ==
[2024-03-14 07:32] VITALS: BP 163/86; PULSE 89; RESP 18; TEMP 37; O2SAT 100; BMI 28.1
--- NOTE | 2024-03-14 07:50 | RAD_ITS ---
STUDY: X-RAY - LUMBAR SPINE REASON FOR EXAM: Female, 48 years old. Low back pain, radiates to toes left TECHNIQUE: 4 view(s) of the lumbar spine were obtained. COMPARISON: None FINDINGS: There is straightening of the normal lumbar lordosis. There is a levoscoliosis of the lumbar spine. There is multilevel endplate spondylosis of the lumbar vertebrae. There is multi-level degenerative disc disease with multi-level disc space narrowing. There is no demonstrated fracture. The soft tissue structures are unremarkable. RAD/L/S Spine Min 4 Views IMPRESSION: Scoliosis and degenerative change. Electronically Signed: Aneesh Snell MD at 9:21 EST ,
[2024-03-14] MEDS: predniSONE 20 MG Tablet 40 MG PO (07:56)
[2024-03-14] MEDS: diazePAM 2 MG Tablet PO (07:56)
[2024-03-14] MEDS: Ketorolac 15 MG/ML Vial IM (07:56)
--- NOTE | 2024-03-14 07:56 | EDS_ITS ---
HPI History of Present Illness Chief Complaint: Back Narrative Narrative: Patient is a 48-year-old female past medical history GERD, diabetes does not follow with a physician for the past 2 years who presents to the emergency department the chief complaint of low back pain radiating to her left leg. States this been going on about a week she states that she was here about a week ago for this and was given oxycodone and was ultimately sent home. States that she did not have any imaging performed. Patient notes that the oxycodone is not helping the pain and she is fear that she has a slipped disc. States that about a week ago she was lifting heavy tables when this occurred. Patient denies any history of IV drug use, as does smoke and denies any alcohol use. Patient states that she has been urinating normal for self and having normal bowel movements. [facility] Medical History Sciatic nerve pain Hammer toes, bilateral GERD (gastroesophageal reflux disease) Diabetes Home Medications ?Medication ?Instructions ?Recorded ?Last Taken ?Type lisinopril 5 mg tablet 5 mg PO DAILY 07/25/13 Unknown History atorvastatin 20 mg tablet 40 mg PO QHS 02/03/16 Unknown History esomeprazole magnesium 20 mg 20 mg PO DAILY 02/03/16 Unknown History capsule,delayed release (Nexium) metformin 500 mg tablet 500 mg PO BID 02/03/16 Unknown History amoxicillin 500 mg tablet 500 mg PO TID #30 tabs 06/28/19 Unknown Rx cyclobenzaprine 10 mg tablet 10 mg PO BID PRN muscle spasm #10 08/06/20 Unknown Rx tabs hydrocodone-acetaminophen 5-325mg 1 tab PO Q6H PRN pain 3 days #10 08/06/20 Unknown Rx 5mg-325mg tabs naproxen 500 mg tablet (Naprosyn) 500 mg PO BID PRN pain #20 tabs 08/06/20 Unknown Rx prednisone 20 mg tablet 40 mg (2 x 20 mg) PO DAILY #8 tabs 08/06/20 Unknown Rx prednisone 20 mg tablet 40 mg (2 x 20 mg) PO DAILY #8 tabs 11/25/21 Unknown Rx oxycodone 5 mg tablet 5 mg PO Q6H PRN pain 3 days #12 03/12/24 Unknown Rx tabs cetirizine 10 mg tablet (24Hour 10 mg PO DAILY PRN allergy symptoms 03/14/24 Unknown History Allergy) cyclobenzaprine 5 mg tablet 5 mg PO TID PRN muscle spasm 3 03/14/24 Unknown Rx days #9 tabs gabapentin 100 mg capsule 100 mg PO TID 10 days #30 caps 03/14/24 Unknown Rx lidocaine 5 % topical patch 1 patch topical DAILY #15 ea 03/14/24 Unknown Rx (Lidoderm) methylprednisolone 4 mg tablets in See Rx Instructions PO .COMPLEX 03/14/24 Unknown Rx a dose pack #21 tabs Allergy/AdvReac Type Severity Reaction Status Date / Time No Known Allergies Allergy Verified 03/14/24 07:32 Surgical History History of tympanostomy tube placement History of tonsillectomy History of tubal ligation Social History Smoking Status: Current every day smoker tobacco type: cigarettes ROS ROS ED ROS Narrative Constitutional: Denies any fevers, chills, headaches, lightness, dizziness Eyes: Denies change in vision double vision blurry vision Cardiovascular: Denies chest pain Respiratory: Denies shortness of breath Abdomen: Denies nausea vomit diarrhea : Denies any urinary symptoms and denies any difficulty urinating as noted above Neurological: Complains of pain shooting down the left leg as noted above denies any numbness, tingling, weakness Musculoskeletal: Complains of back pain as noted above Skin: Denies any rashes or lesions EXAM Physical Exam Narrative Exam Narrative: General: Patient lying in bed rest comfortably did appeared to be uncomfortable secondary to her back pain was tearful Head: Atraumatic, normocephalic Eyes: PERRL bilateral, EOMI bladder, no conjunctival injection noted Neck: Soft, supple, trachea midline Cardiovascular: Regular in rhythm no murmurs gallops rubs noted Respiratory: clear to auscultation bilaterally Abdomen: Soft, nondistended, nontender to palpation Musculoskeletal: Patient has tenderness palpation over the left quadratus lumborum region no tenderness palpation the midline of thoracolumbar spine Extremities: +5/5 strength noted in the bilateral upper and lower extremities, radial pulses +2/4 in the bilateral per extremities Neurological: Patient following commands knew that she was at [facility] year is 2023. Sensation grossly intact in the bilateral lower extremities, no saddle anesthesia noted Skin: Warm, dry, intact, no rashes or lesions noted Const Vital Signs: 03/14/24 07:32 Temperature 98.6 F Temperature Source Oral Pulse Rate 89 Respiratory Rate 18 Blood Pressure 163/86 H Blood Pressure Mean 111 Pulse Ox 100 Oxygen Delivery Method Room Air MDM MDM MDM Narrative Medical decision making narrative: Patient is a 48-year-old female who presented to the emerged part with a chief complaint of back pain rating down her left leg into her toes. Patient will have a x-ray performed here on the differential diagnose includes but not limit ed to herniated disc, sciatica, compression fracture. Once workup is obtained reviewed she will be reevaluated. Patient be given Valium, Toradol and prednisone. Once workup is obtained reviewed she will be reevaluated. Patient's x-ray reviewed by myself and by radiology Showed scoliosis and degenerative change. On On reevaluation the patient and she states that her pain is better she would l jaison to go home at this point time. We will treat her pain with multimodal pain therapy. She was advised to rotate Tylenol and ibuprofen [id number]. She states that she still has oxycodone at home she is advised to use this for severe pain. Patient will be placed on steroid taper, gabapentin, Lidoderm patch as well. She was encouraged to follow-up pain management in the outpatient setting. She was encouraged to not operate anything under the influence of these medications as they will make her drowsy. She is agreeable this plan as well as significant other at bedside all question concerns answered she was discharged home in stable condition. Radiography Diagnostic Testing: Clinical Impression(s) from Imaging Studies Lumbar Spine X-Ray 03/14/24 07:50 IMPRESSION: Scoliosis and degenerative change. Electronically Signed: Aneesh Snell MD at 9:21 EST , Discharge Plan Triage Chief Complaint: Back ED Provider: Ashwin Doss Dx/Rx/DC Orders Clinical Impression: Low back pain Instructions: Back Exercises: Leg Reach, Back Exercises: Lower Back Stretch Prescriptions: New gabapentin 100 mg capsule 100 mg PO TID 10 Days Qty: 30 0RF cyclobenzaprine 5 mg tablet 5 mg PO TID PRN (Reason: muscle spasm) 3 Days Qty: 9 0RF lidocaine [Lidoderm] 5 % adhesive patch,medicated 1 patch topical DAILY Qty: 15 0RF Rx Instructions: leave on most painful area for up to 12 hrs methylprednisolone 4 mg tablets,dose pack See Rx Instructions .ROUTE .COMPLEX Qty: 21 0RF Rx Instructions: for 6 days No Action lisinopril 5 MG tablet 5 mg PO DAILY metformin 500 MG tablet 500 mg PO BID atorvastatin 20 MG tablet 40 mg PO QHS esomeprazole magnesium [Nexium] 20 MG capsule 20 mg PO DAILY amoxicillin 500 MG tablet 500 mg PO TID Qty: 30 0RF naproxen [Naprosyn] 500 mg tablet 500 mg PO BID PRN (Reason: pain) Qty: 20 0RF hydrocodone-acetaminophen 5-325 mg tablet 1 tab PO Q6H PRN (Reason: pain) 3 Days Qty: 10 0RF cyclobenzaprine 10 mg tablet 10 mg PO BID PRN (Reason: muscle spasm) Qty: 10 0RF prednisone 20 mg tablet 40 mg PO DAILY Qty: 8 0RF prednisone 20 mg tablet 40 mg PO DAILY Qty: 8 0RF cetirizine [24Hour Allergy] 10 mg tablet 10 mg PO DAILY PRN (Reason: allergy symptoms) oxycodone 5 mg tablet 5 mg PO Q6H PRN (Reason: pain) 3 Days Qty: 12 0RF Stand Alone Forms: Work Status Form Primary Care Provider: Care Physician,No Primary Referrals: Care Physician,No Primary [Primary Care Provider] - Nelda Zamorano [facility], DO [[facility]] - Activity Restrictions/Additional Instructions: Use prescriptions as prescribed. Do not operate anything under the influence these medications. You should be using Tylenol and ibuprofen for mild to moderate pain and use the oxycodone for severe pain. Call pain management for an appointment. Ensure you are stretching. Take it easy for the next 2 to 3 days and return to daily activity as tolerated. Follow-up with your primary care physician as well. Print Language: Tamazight Disposition Disposition: Home, Self Care
[2024-03-14 10:14] VITALS: BP 132/67; PULSE 63; RESP 18; TEMP 37; O2SAT 97
== END 2024-03-14 10:16 | disposition home or self-care (01) ==
PROVIDERS: Emergency Provider Emergency Medicine; Visit Provider Emergency Medicine
DX: M54.50 Low back pain, unspecified (principal); E11.9 Type 2 diabetes mellitus without complications; F17.210 Nicotine dependence, cigarettes, uncomplicated
CPT/HCPCS: 72110; 96372; 99285